=== PATIENT | female | born 1960 | race Caucasian/White ===

== ENCOUNTER 2018-01-04 12:22 | Emergency (ER) | payer MEDICAID ==
[2018-01-04 12:27] VITALS: BMI 35.2
[2018-01-04 12:28] VITALS: BP 106/73; PULSE 81; RESP 20; TEMP 98.3; O2SAT 99
[2018-01-04] MEDS ORDERED: Naproxen 550 mg Tab PO STA (12:44)
--- NOTE | 2018-01-04 12:48 | C.PDOC ---
History Of Present Illness 57 year old female presents to the ED c/o left foot pain. Patient reports she was stepped on Sunday and is now c/o pain to the 2nd and 3rd digits to the left foot. Patient denies prior injury, fall, weakness, numbness. Time Seen by Provider: 01/04/18 12:43 Chief Complaint (Nursing): Lower Extremity Problem/Injury History Per: Patient History/Exam Limitations: no limitations Onset/Duration Of Symptoms: Days Current Symptoms Are (Timing): Still Present Recent travel outside of the [place]: No Additional History Per: Patient - Ankle/Foot Description Of Injury: Other Past Medical History Reviewed: Historical Data, Nursing Documentation, Vital Signs Vital Signs: Last Vital Signs Temp 98.3 F 01/04/18 12:27 Pulse 81 01/04/18 12:27 Resp 20 01/04/18 12:27 BP 106/73 01/04/18 12:27 Pulse Ox 99 01/04/18 12:49 - Medical History PMH: No Chronic Diseases Surgical History: No Surg Hx Family History: States: Unknown Family Hx - Social History Hx Alcohol Use: No Hx Substance Use: No - Immunization History Hx Tetanus Toxoid Vaccination: No Hx Influenza Vaccination: No Hx Pneumococcal Vaccination: No Review Of Systems Except As Marked, All Systems Reviewed And Found Negative. Musculoskeletal: Positive for: Foot Pain Skin: Positive for: Other (Swelling) Physical Exam - Physical Exam Appears: Non-toxic, No Acute Distress Skin: Normal Color, Warm, Dry Head: Atraumatic, Normacephalic Eye(s): bilateral: Normal Inspection Nose: No Discharge Oral Mucosa: Moist Extremity: Normal ROM, Tenderness (left 2nd and 3rd toes), Capillary Refill (<2 seconds), Swelling (left 2nd and 3rd toes) Pulses: Left Dorsalis Pedis: Normal, Right Dorsalis Pedis: Normal Neurological/Psych: Oriented x3, Normal Motor, Normal Sensation Gait: Steady ED Course And Treatment O2 Sat by Pulse Oximetry: 99 (ON RA) Pulse Ox Interpretation: Normal Medical Decision Making Medical Decision Making: Plan: * Anaprox 550 mg PO * Left foot X-Ray xr neg as rudolph d by me. advise outpt fu return precautions. pt also requestesd knee xr for chronic pain x 3 mo. no known trauma to knee Disposition - Disposition Referrals: [facility] [Outside] [facility] [Outside] [facility] [Outside] Disposition: HOME/ ROUTINE Disposition Time: 12:00 Condition: STABLE Additional Instructions: follow up with your doctor/specialist. return to er with worsening symptoms or concerns Prescriptions: Naproxen [Naprosyn] 500 mg PO BID PRN #14 tablet PRN Reason: Pain, Mild (1-3) Instructions: Chronic Knee Pain, Foot Sprain (DC) Forms: Acucela (Nauruan) - Clinical Impression Clinical Impression: Foot sprain, Knee pain - Scribe Statement The provider has reviewed the documentation as recorded by the Scribe Marvin Christianson All medical record entries made by the Scribe were at my direction and personally dictated by me. I have reviewed the chart and agree that the record accurately reflects my personal performance of the history, physical exam, medical decision making, and the department course for this patient. I have also personally directed, reviewed, and agree with the discharge instructions and disposition.
[2018-01-04] MEDS ORDERED: Naproxen 550 mg Tab PO ONE (12:56)
--- NOTE | 2018-01-04 14:38 | RAD ---
PROCEDURE: Left Knee Radiographs. HISTORY: Pain. COMPARISON: None. FINDINGS: BONES: No evidence of acute displaced fracture nor dislocation. The osseous structures appear intact. JOINTS: There appears to be mild medial joint space narrowing. Small to medium-sized medial and marginal osteophyte formation. Minor patella femoral degenerative osteoarthritis. . JOINT EFFUSION: No significant joint effusion OTHER FINDINGS: Tiny corticated bony density within the prepatellar soft tissues may represent some old posttraumatic mineralization. IMPRESSION: No evidence of acute displaced fracture nor dislocation. Mild DJD as above.
--- NOTE | 2018-01-04 15:39 | RAD ---
PROCEDURE: Left Foot Radiographs. HISTORY: trauma COMPARISON: None. FINDINGS: BONES: No acute fracture or destructive bony lesion identified. Diffuse osteopenia suggests osteoporosis however. JOINTS: Degenerative cortical sclerosis appreciate throughout the interphalangeal joints including joint space narrowing. No subluxation or dislocation throughout the left foot. SOFT TISSUES: Normal. OTHER FINDINGS: None. IMPRESSION: No acute fracture dislocation. degenerative changes seen the forefoot diffusely and diffuse osteopenia suggests osteoporosis.
== END 2018-01-04 14:13 | disposition home or self-care (01) ==
LOC: C.ER 12:22
DX: S93.602A Unspecified sprain of left foot, initial encounter (principal); W50.0XXA Accidental hit or strike by another person, initial encounter; M25.562 Pain in left knee